=== PATIENT | male | born 1980 | race Caucasian/White ===

== ENCOUNTER 2017-12-14 06:37 | Emergency (ER) | payer MEDICAID ==
[~2017-12-14] VITALS: Ht 175.3 cm; Wt 80.3 kg
[2017-12-14 06:49] VITALS: Ht 175.3 cm; Wt 80.3 kg
[2017-12-14 09:09] VITALS: BP 120/79
== END 2017-12-14 09:09 | disposition home or self-care (01) ==
LOC: ED 06:37
DX: J02.9 Acute pharyngitis, unspecified (principal); H92.02 Otalgia, left ear
CPT/HCPCS: 87804; J1885